=== PATIENT | male | born 1990 | race Hispanic/Latino ===

== ENCOUNTER 2019-10-28 14:33 | Outpatient (CLI) | payer OTHER ==
--- NOTE | 2019-10-28 15:17 | RAD ---
RIGHT KNEE 2 VIEWS: HISTORY: Right knee pain. FINDINGS/IMPRESSION: No fracture, dislocation, or bony destruction was seen. POS: [facility]
--- NOTE | 2019-10-28 15:31 | RAD ---
LEFT KNEE THREE VIEWS: 10/28/19 HISTORY: Left knee pain. FINDINGS/IMPRESSION: No fracture, dislocation, or bony destruction seen. POS: [facility]
== END 2019-10-28 14:34 | disposition home or self-care (01) ==
LOC: BICRAD 14:33
PROVIDERS: ATTEND Nurse Practitioner Family
DX: M25.562 Pain in left knee (principal); M25.561 Pain in right knee

== ENCOUNTER 2019-12-21 16:51 | Emergency (ER) | payer OTHER ==
[2019-12-22 10:11] LABS: SARS-CoV-2 MS2 Positive; SARS-CoV-2 N Gene Negative; SARS-CoV-2 S Gene Negative; SARS-CoV-2 orf1ab Negative
== END 2019-12-21 17:30 | disposition home or self-care (01) ==
LOC: ERS 16:51
DX: J06.9 Acute upper respiratory infection, unspecified (principal); Z20.828 Contact with and (suspected) exposure to other viral communicable diseases
CPT/HCPCS: 87081; 87430; 87635; 87804; 99283; U0003